=== PATIENT | female | born 1970 | race Caucasian/White ===

== ENCOUNTER 2020-02-28 06:34 | Day surgery (SDC) | payer MEDICAID, SELFPAY ==
[2020-02-26 14:47] VITALS: BMI 44.9
[2020-02-28 06:54] VITALS: BP 160/100; PULSE 83; RESP 18; TEMP 36.2; O2SAT 96
[2020-02-28] MEDS: sodium chloride 0.9% 1,000 ML 30 ML IV (07:00)
--- NOTE | 2020-02-28 07:13 | P.HP_ITS ---
Same Day Surgery H&P Indication for Procedure/HPI DATE OF PROCEDURE: February 28, 2020 CHIEF COMPLAINT/INDICATIONFOR SURGICAL PROCEDURE: I am here to discuss screening colonoscopy PREOP DIAGNOSIS: Screening Colonoscopy PLANNED PROCEDRUE: Operation Date: 02/28/20 07:30 Proposed Procedures p Colonoscopy 71120 Z12.11(Not Applicable) - Vin Naik MD This is a pleasant 49 years old female patient was referred to my practice for evaluation for screening colonoscopy, as she never had one before, she is updated on Pap smear mammograms and she was advised by her PCP to have a screening colonoscopy. Patient denies any bleeding per rectum, colon cancer history or weight loss ROS All systems have been reviewed negative except as per the above or per problem list Medications/Allergies* Home Medications Medication Instructions Recorded Confirmed Type hydrocodone 5 mg-acetaminophen 325 1 tab PO BID PRN 09/30/19 02/28/20 History mg tablet lisinopril 20 mg tablet 20 mg PO DAILY 09/30/19 02/28/20 History ospemifene 60 mg tablet 60 mg PO DAILY 09/30/19 02/28/20 History Allergies/Adverse Reactions Allergy/AdvReac Type Severity Reaction Status Date / Time latex Allergy ITCHING, Verified 02/28/20 07:17 RASH Current Medications: Generic Name Dose Route Start Last Admin Trade Name Freq PRN Reason Stop Dose Admin Sodium Chloride 1,000 mls @ 30 mls/hr 02/28/20 06:45 02/28/20 07:00 Sodium Chloride 0.9% IV 30 mls/hr .Q24H SHUKRI Administration Pertinent History/Comorbid Conditions* Medical History (Updated 09/30/19 @ 04:09 by Vonda Cronin RN) Anxiety and depression Back pain due to injury Dyspareunia, female Left ovarian cyst Overactive bladder Pelvic pain in female Urinary, incontinence, stress female Vaginal bleeding, abnormal Vaginal dryness Pbgff-Ugkshpazy-Birha syndrome Surgical History (Updated 09/30/19 @ 04:09 by Vonda Cronin RN) H/O breast biopsy H/O carpal tunnel repair History of bladder surgery History of hysterectomy History of tubal ligation Hx of left knee surgery Family History (Updated 09/30/19 @ 04:10 by Vonda Cronin RN) Diabetes Mother Grandmother MATERNAL Patient denies medical problems Family/Other Patient denies any past medical history of diabetes, lung, liver, kidney, thyroid, bleeding, or clotting problems. Cancer Mother RENAL CELL CARCINOMA Hypertension Mother Social History Smoking and tobacco status: former smoker Alcohol intake: current Alcohol intake frequency: holidays/special occasions only Pertinent Exam Findings alert, oriented x 3, clear to auscultation bilaterally, regular rate & rhythm and procedure specific exam findings (Abdominal examination nontender nondistended soft no peritonitis/obese) Recommendations Surgery/Procedure today (Screening colonoscopy/informed consent per chart indications risks benefits and alternatives were all discussed with the patient and she did agree to proceed accordingly.) 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
--- NOTE | 2020-02-28 07:19 | P.ANESASSM_ITS ---
Pre-Anesthetic Assessment Pre-Anesthetic Assessment: Height/Weight: Height 1.52 m Weight 104.326 kg Temp Pulse Resp BP Pulse Ox 97.1 F L 83 18 160/100 96 02/28/20 06:54 02/28/20 06:54 02/28/20 06:54 02/28/20 06:54 02/28/20 06:54 Preop Diagnosis: Screening Colonoscopy Proposed Procedure: Operation Date: 02/28/20 07:30 Proposed Procedures p Colonoscopy 00471 Z12.11(Not Applicable) - Vin Naik MD Last intake: Intake Last Liquid Date 02/27/20 Last Liquid Time 20:00 Last Solid Date 02/27/20 Last Solid Time 10:00 Social: Social History: No alcohol and No tobacco Packs per day: quit 11 yr ago Exam: Pre-Anes Outpt Exam: alert, oriented x 3, clear to auscultation bilaterally and regular rate & rhythm Airway: Submandibular: WNL Cervical ROM: WNL MP: 3 Dentition: Full History/ROS: No significant history except as noted and No significant complaints Pulmonary: Pulmonary: Sleep apnea and None reported CV/HEM: CV/HEM: Arrythmia and HTN Comments: WPW : : None reported Hepatic: Hepatic: None reported GI: GI: None reported Metabolic: Metabolic: None reported Musc/skel: Musc/skel: Lower Back Pain and OA/DJD Neuropsych: Neuropsych: None reported Anesthetic Plan: ASA status: 2 Anesthesia: MAC Meds/Allergies Current Medications: Current Medications Generic Name Dose Route Start Last Admin Trade Name Freq PRN Reason Stop Dose Admin Sodium Chloride 1,000 mls @ 30 ml s/hr 02/28/20 06:45 02/28/20 07:00 Sodium Chloride 0.9% IV 30 mls/hr .Q24H SHUKRI Administration PFSH Anesthesia PFSH: Medical History Anxiety and depression Back pain due to injury Dyspareunia, female Left ovarian cyst Overactive bladder Pelvic pain in female Urinary, incontinence, stress female Vaginal bleeding, abnormal Vaginal dryness Ytymj-Yrnziikgl-Obxhe syndrome Surgical History H/O breast biopsy H/O carpal tunnel repair History of bladder surgery History of hysterectomy History of tubal ligation Hx of left knee surgery Family History Mother Diabetes Hypertension Cancer RENAL CELL CARCINOMA Grandmother Diabetes MATERNAL Family/Other Patient denies medical problems Patient denies any past medical history of diabetes, lung, liver, kidney, thyroid, bleeding, or clotting problems. Social History Smoking and tobacco status: former smoker Alcohol intake: current Alcohol intake frequency: holidays/special occasions only Data Anesthesia Cardiac Studies: 2 No Data to Display
[2020-02-28 07:35] VITALS: BP 126/78; PULSE 81; RESP 16; TEMP 36.3; O2SAT 95
[2020-02-28 07:46] VITALS: BP 126/84; PULSE 67; RESP 18; O2SAT 96
--- NOTE | 2020-02-28 07:51 | ANE.PACU2 ---
Inpatient post-anesthesia follow up: Airway intact: Yes Vital signs: Temperature 97.3 F Pulse Rate 67 Respiratory Rate 18 Blood Pressure 126/84 Pulse Oximetry 96 Oxygen Delivery Me thod Room Air Oxygen Flow Rate 3 Fraction of Inspir ed Oxygen Hydration adequate: Yes Nausea and vomiting: No Mental status: Baseline
== END 2020-02-28 07:55 | disposition home or self-care (01) ==
PROVIDERS: PCP Physician Assistant Medical; Visit Provider Surgery
PROC: 0DJD8ZZ Inspection of Lower Intestinal Tract, Via Natural or Artificial Opening Endoscopic (ICD-10-PCS; CPT 45378; principal; 2020-02-28 07:30)
DX: Z12.11 Encounter for screening for malignant neoplasm of colon (principal); K57.30 Diverticulosis of large intestine without perforation or abscess without bleeding; Z87.891 Personal history of nicotine dependence
CPT/HCPCS: 12345; 45378; J2704; J7030

== ENCOUNTER → 2022-09-14 15:46 | Outpatient (BNVA) | payer MEDICARE, BC, MEDICAID, SELFPAY | PROVIDERS: PCP Physician Assistant Medical; Referring Provider Registered Nurse; Visit Provider Specialist | DX: G56.02 Carpal tunnel syndrome, left upper limb (principal) | CPT/HCPCS: 95908; 95909 ==

== ENCOUNTER → 2023-05-18 10:40 | Outpatient (BNVA) | payer MEDICARE, MEDICAID, SELFPAY | PROVIDERS: PCP Registered Nurse; Visit Provider Internal Medicine Cardiovascular Disease | DX: N32.81 Overactive bladder (principal); R07.9 Chest pain, unspecified; I10 Essential (primary) hypertension; E78.2 Mixed hyperlipidemia; E66.01 Morbid (severe) obesity due to excess calories; Z68.41 Body mass index [BMI] 40.0-44.9, adult; R94.31 Abnormal electrocardiogram [ECG] [EKG]; R00.2 Palpitations | CPT/HCPCS: 93005; 93246; 99204 ==

== ENCOUNTER 2023-05-21 11:58 | Outpatient (CLI) | payer MEDICARE, MEDICAID, SELFPAY ==
--- NOTE | 2023-05-21 | ECG_ITS ---
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 Interpretive Statements NAME OF STUDY: TREADMILL STRESS TEST INDICATION: cp, abnormal ekg Baseline blood pressure of [158/102] mm Hg, heart rate [of 102] beats per minute and oxygen saturation [of 96% ]. EKG showed sinus tachycardia, left axis deviation. Nonspecific T wave changes. The patient exercised for [ 3 minutes] on a [standard Antonio protocol]. Patient attained a maximum heart rate of [153] beats per minute( [91] % of the maximum predicted heart rate) with a blood pressure at the peak exercise of [155/79]mm Hg. The EKG at the peak exercise revealed [Sinus tachycardia with no significant ST-T wave changes]. Patient did not have any chest pain or any significant arrhythmis with the exercise. Study was terminated due to maximal effort. During the recovery phase, there were no new changes. Blood pressure at the end of the recovery phase was [151/81] mm Hg with a heart rate of [111 beats] per minute. CONCLUSION: 1. Normal EKG response to treadmill exercise 2. No exercise-induced chest pain or cardiac arrhythmia. 3. Decreased exercise tolerance, attained a maximum of [4.6] METs. 4. Baseline hypertension with normal response to exercise. Electronically Signed On 05-31-2023 10:45:16 CDT by Bethany Evans M.D. [email or web address].[employer]/store/[id number]
[2023-05-21 12:15] VITALS: BMI 48.8
[2023-05-21 12:40] VITALS: BP 151/81; PULSE 111
== END 2023-05-21 11:59 | disposition home or self-care (01) ==
LOC: CDL 11:59
PROVIDERS: PCP Registered Nurse; Visit Provider Internal Medicine Cardiovascular Disease
DX: R07.9 Chest pain, unspecified (principal); R94.31 Abnormal electrocardiogram [ECG] [EKG]
CPT/HCPCS: 93017

== ENCOUNTER 2023-05-31 08:58 | Outpatient (CLI) | payer MEDICARE, MEDICAID, SELFPAY ==
--- NOTE | 2023-05-31 09:30 | USCV_ITS ---
Sandie Rodriguez Age: 52 Gender: F : 1970 Exam Date: 05/31/2023 09:13 Ordering Phys: Bethany Evans MD ([email or web address]) Technologist: Mis Vázquez Exam Location: [facility] [place] Indication: cp, sob, fatigue BP: 150 / 84 HR: 67 Rhythm: Sinus Technical Quality: Good MEASUREMENTS (Male / Female) Normal Values 2D ECHO LV Diastolic Diameter PLAX 4.7 cm 4.2 - 5.9 / 3.9 - 5.3 cm LV Systolic Diameter PLAX 1.8 cm IVS Diastolic Thickness 1.0 cm 0.6 - 1.0 / 0.6 - 0.9 cm IVS Systolic Thickness 2.0 cm LVPW Diastolic Thickness 1.4 cm 0.6 - 1.0 / 0.6 - 0.9 cm LVPW Systolic Thickness 1.9 cm LVOT Diameter 2.0 cm LV Ejection Fraction 2D Teich 91.1 % LV Ejection Fraction MOD 2C 66.8 % LV Ejection Fraction 2C AL 67.6 % LA Diameter 2.7 cm LA Width 2.5 cm LA Height 4.1 cm RA Width 2.5 cm RA Height 4.1 cm Aorta at Sinotubular Diameter 2.9 cm IVC Diameter 1.4 cm M-MODE Aortic Annulus Diameter 2.7 cm LA Ao Ratio MM 1.1 MV E Point Septal Separation 0.6 cm DOPPLER AV Peak Velocity 125.0 cm/s LVOT Peak Velocity 109.0 cm/s AV Area Cont Eq vti 2.8 cm squared AV Area Cont Eq pk 2.8 cm squared MV Peak Velocity 88.0 cm/s MV Area PHT 3.2 cm squared Mitral E to A Ratio 0.9 MV E' Velocity 48.5 cm/s Mitral E to MV E' Ratio 8.2 Mitral E to LV E' Lateral Ratio 6.3 Mitral E to LV E' Septal Ratio 11.7 TR Peak Velocity 205.0 cm/s TR Peak Gradient 16.8 mmHg Right Atrial Pressure 5.0 mmHg Pulmonary Artery Systolic Pressu 21.8 mmHg PV Peak Velocity 94.0 cm/s RV Acceleration Time 0.1 s RV Ejection Time 0.3 s RV AcT/ET 0.4 FINDINGS Left Ventricle Normal left ventricular size, systolic function and wall thickness, with no regional wall motion abnormalities. Left ventricular ejection fraction is estimated at 70 %. Normal diastolic function. Right Ventricle Normal right ventricular size and systolic function, RVSP 31 mmHg. Right Atrium Normal right atrial size. Left Atrium Normal left atrial size. Mitral Valve Structurally normal mitral valve. No mitral valve stenosis. Trace mitral valve regurgitation. Aortic Valve Structurally normal trileaflet aortic valve. No aortic valve stenosis. No aortic valve regurgitation. Tricuspid Valve Structurally normal tricuspid valve. No tricuspid valve stenosis. Mild tricuspid valve regurgitation. Pulmonic Valve Pulmonic valve not well visualized. No pulmonary valve stenosis. No pulmonary valve regurgitation. Pericardium No pericardial effusion. Aorta Normal size aortic root and proximal ascending aorta. IVC Normal IVC dimension with >50% respiratory change of the inferior vena cava. CONCLUSIONS 1. Normal left ventricular size, systolic function and wall thickness, with no regional wall motion abnormalities. Left ventricular ejection fraction is estimated at 70 %. Normal diastolic function. 2. Normal right ventricular size and systolic function, RVSP 31 mmHg. 3. Mild tricuspid valve regurgitation. 4. No prior similar studies to compare. Bethany Evans MD (Electronically Signed) Final Date: 31 May 2023 12:34 S
== END 2023-05-31 08:59 | disposition home or self-care (01) ==
LOC: RAD 09:00
PROVIDERS: PCP Registered Nurse; Visit Provider Internal Medicine Cardiovascular Disease
DX: R07.9 Chest pain, unspecified (principal); R06.09 Other forms of dyspnea; R53.83 Other fatigue; R06.02 Shortness of breath; I07.1 Rheumatic tricuspid insufficiency
CPT/HCPCS: 93306

== ENCOUNTER → 2023-09-07 09:37 | Outpatient (BNVA) | payer MEDICARE, MEDICAID, SELFPAY | PROVIDERS: PCP Registered Nurse; Visit Provider Nurse Practitioner Family | DX: L82.1 Other seborrheic keratosis (principal); L82.0 Inflamed seborrheic keratosis; D22.5 Melanocytic nevi of trunk; L57.8 Other skin changes due to chronic exposure to nonionizing radiation; Z80.8 Family history of malignant neoplasm of other organs or systems; L91.8 Other hypertrophic disorders of the skin | CPT/HCPCS: 17110; 99203 ==

== ENCOUNTER → 2023-09-28 08:44 | Outpatient (BNVA) | payer MEDICARE, MEDICAID, SELFPAY | PROVIDERS: PCP Registered Nurse; Visit Provider Nurse Practitioner Family | DX: I10 Essential (primary) hypertension (principal); I45.6 Pre-excitation syndrome; Z87.891 Personal history of nicotine dependence | CPT/HCPCS: 99214 ==

== ENCOUNTER 2023-12-01 13:59 | Emergency (ER) | payer MEDICARE, SELFPAY ==
[2023-12-01 14:07] VITALS: BP 181/82; PULSE 79; RESP 18; TEMP 36.4; O2SAT 98; BMI 48.2
[2023-12-01 15:10] VITALS: PULSE 83; RESP 16; O2SAT 96
--- NOTE | 2023-12-01 15:49 | ECG_ITS ---
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 Measurements Intervals [place] Rate: 70 P: 95 WA: 109 QRS: -20 QRSD: 138 T: 135 QT: 421 QTc: 455 Interpretive Statements SINUS RHYTHM WITH SHORT WA INTERVAL VENTRICULAR PREEXCITATION Compared to ECG 05/18/2023 10:46:01 No significant changes Electronically Signed On 12-01-2023 22:12:44 CDT by Ricco Aldana M.D. [email or web address].[email or web address]/store/[id number]
--- NOTE | 2023-12-01 15:49 | XR_ITS ---
WS: [id number] Examination: XR chest 1V portable [id number] Reason for Exam: HTN,SOB Date: December 01, 2023 Comparison: None. Findings: The heart is not enlarged. The mediastinum is not widened There is no pulmonary edema. There is no large effusion. No dense consolidation is identified. Impression: No acute lung process is seen.
--- NOTE | 2023-12-01 16:00 | PC.PHAR ---
pt states she takes care of her own medications-pt states she dced her spironolactone-hctz 25-25 1 tab po daily -oxybutynin er 5mg tid and wellbutrin sr 200mg bid pt states not taken for over a month-
[2023-12-01] MEDS: diphenhydrAMINE 50 mg/mL SDV 1mL IM (16:07)
[2023-12-01] MEDS: sodium chloride 0.9% 1,000 ML 999 ML IV (16:07)
[2023-12-01 16:16] LABS: Basophils % 0.6 %; Eosinophils # 0.2 10^3/uL (0.0-0.8); Eosinophils % 2.9 %; Hematocrit 32.9 % (36-47); Lymphocytes # 1.4 10^3/uL (0.8-4.8); Lymphocytes % 20.9 %; Mean Corpuscular HGB Conc 33.4 g/dL (30-55); Mean Corpuscular Hemoglobin 31.1 pg (27-33); Mean Corpuscular Volume 92.9 fl (85-98); Mean Platelet Volume 10.6 fL (7.4-10.4); Monocytes # 0.4 10^3/uL (0.2-0.9); Monocytes % 5.7 %; Neutrophils % 69.6 %; Nucleated Red Blood Cells % 0 %; Platelet Count 167 10^3/cmm (157-399); Red Blood Count 3.54 10^6/uL (3.85-5.65); Red Cell Distribution Width 12.3 % (12.1-15.1); White Blood Count 6.61 10^3/uL (3.29-11.43)
--- NOTE | 2023-12-01 16:27 | W.ED.GENADLT ---
Documented by User: ABDOUL Kowalski 12/01/23 19:43 HPI - General Adult General: Chief complaint: General Medical Stated complaint: facial swelling, headache Time Seen by Provider: 12/01/23 14:20 Source: patient Mode of arrival: ambulatory Limitations: no limitations History of Present Illness: Patient is a 53-year-old female presents the emergency department complaining of high blood pressure onset today. Patient notes she has been dealing with high blood pressure for a while now, and takes readings twice a day. She notes that prior to arrival, she recorded a blood pressure of 180s systolic. She is on lisinopril and metoprolol, and as of 1 week ago was started on amlodipine. She does note symptoms of some weakness and headaches, but otherwise denies any chest pain or breathing difficulties. She is also reporting some facial swelling, eye watering, and congestion. She does note a history of kidney disease. 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 She further denies any peripheral edema, palpitations, syncope, or any other symptoms. Associated symptoms: Reports headache(s); Deny chest pain, dyspnea, nausea, rash, palpitations or vomiting Review of Systems General: Reports: 10 or more systems reviewed and unremarkable except in HPI and below Const: Denies: fever(s), chills or fatigue Eyes: Reports: eye discharge (Watery); Denies: change in vision ENMT: Reports: nasal congestion and other (Facial swelling); Denies: throat pain, ear or mastoid pain or nasal discharge Card: Reports: other (Hypertension); Denies: chest pain, palpitations, swelling of feet/ankles or lightheadedness Resp: Denies: dyspnea, productive cough or wheezing GI: Denies: abdominal pain, nausea, vomiting, diarrhea or constipation : Denies: flank pain, difficulty voiding, dysuria or urinary frequency Musc: Denies: neck pain, back pain or joint pain Skin/Breast: Denies: rash Neuro: Reports: headache(s) and weakness in extremities; Denies: numbness in extremities [facility] PFSH: Medical History Mixed hyperlipidemia Morbid obesity with BMI of 40.0-44.9, adult Anxiety and depression Vjibz-Jhplphlrd-Pwxky syndrome Overactive bladder Vaginal bleeding, abnormal Back pain due to injury Left ovarian cyst Dyspareunia, female Urinary, incontinence, stress female Pelvic pain in female Vaginal dryness Surgical History H/O esophagogastroduodenoscopy with dilation H/O colonoscopy H/O carpal tunnel repair History of bladder surgery Hx of left knee surgery H/O breast biopsy History of tubal ligation History of hysterectomy Family History Mother Diabetes Hypertension Cancer RENAL CELL CARCINOMA Grandmother Diabetes MATERNAL Family/Other Patient denies medical problems Patient denies any past medical history of diabetes, lung, liver, kidney, thyroid, bleeding, or clotting problems. Denies family history of Anesthesia complication Bleeding disorder Social History Smoking and tobacco/nicotine status: former use of tobacco/nicotine Alcohol intake: current Alcohol intake frequency: holidays/special occasions only Substance/Drug Use: never Household members: spouse Marital status: Current occupational status: disabled Physical Exam Const: COMMON NORMALS: no acute distress, patient oriented x3 and no limitations GENERAL APPEARANCE: cooperative, comfortable and well developed ORIENTATION/CONSCIOUSNESS: Yes awake, Yes oriented to person, Yes oriented to place and Yes oriented to time HENMT: COMMON NORMALS: normocephalic, atraumatic, hearing grossly normal bilaterally and Normal external nose present HEAD & SCALP: normocephalic and atraumatic FACE & SINUS: edema bilaterally periorbital NOSE: Normal external nose present MOUTH: Normal oral and palatal mucosa present Eye: COMMON NORMALS: Equal, round and reactive pupils present, EOMs intact bilaterally and conjunctivae normal CONJUNCTIVA: Yes conjunctivae normal PUPIL: Yes Equal, round and reactive pupils present Neck/C-Spine: COMMON NORMALS: full ROM, supple and no JVD Resp: COMMON NORMALS: normal respiratory effort, No retractions, No use of accessory muscles and clear to auscultation bilaterally AUSCULTATION: clear to auscultation bilaterally Cardio: COMMON NORMALS: no JVD, regular rate, regular rhythm, No clicks present (Cardio), No murmurs present (Cardio) and No rub (Cardio) RATE: regular rate RHYTHM: regular rhythm GI: COMMON NORMALS: Normal to inspection, nondistended, normoactive bowel sounds present, Soft to palpation and non-tender PALPATION: Yes Soft to palpation RECTAL EXAM: deferred Extremity: COMMON NORMALS: normal to inspection, full ROM and capillary refill normal Neuro: COMMON NORMALS: patient oriented x3, moves all extremities, no focal motor deficits and no sensory deficits noted SENSORIUM/ORIENTATION: Yes oriented to person, Yes oriented to place and Yes oriented to time Psych: COMMON NORMALS: mental status grossly normal and Normal thought process present THOUGHT PROCESS: Normal thought process present Skin: COMMON NORMALS: no rashes or lesions noted GENERAL SKIN EXAM: no rashes or lesions noted Course Vital Signs: Vital signs: Vital Signs Temperature 97.5 F L 12/01/23 14:07 Pulse Rate 78 12/01/23 18:09 Respiratory Rate 16 12/01/23 18:09 Blood Pressure 179/84 12/01/23 18:09 Pulse Oximetry 97 12/01/23 18:09 Oxygen Delivery Me thod Room Air 12/01/23 16:46 MDM - General Adult Medical Decision Making This patient was seen and evaluated in the emergency department due to high blood pressure readings. Patient reports lengthy history, starting with new onset hypertension and kidney disease starting in August. She has been started and tried on many antihypertensives since, with retained elevated blood pressure readings. She states that yesterday she started getting readings of 180s systolic, and got worried when she started having some associated weakness and headaches. She does note some chronically worsening visual changes as well as some facial swelling. Recently, she was started on amlodipine, already on metoprolol and lisinopril. She notes having a follow-up scheduled with nephrology in a week and a half. Her vitals on arrival were ultimately unremarkable, aside from the previously reported elevated blood pressure which has also been in the 180s systolic here. Basic laboratory workup showed some mild anemia associated with an elevated BUN and creatinine, and further evidence of a kidney injury. GFR was noted to be 16. Her urine also had some protein, but the rest of her labs ultimately normal. EKG showed Matev-Raminhkbg-Mwfni with normal sinus rhythm, which she states is chronic and she sees a medical sales specialist for. Chest x-ray unremarkable. I spoke to Dr. Camarena, hospitalist, to discuss patient's case and current findings. He recommended correlating kidney labs with records from outside facility, which after doing so appeared that her BUN and creatinine were stable compared to most recent labs. He also recommended starting hydralazine, discontinuing lisinopril, and maintaining her current plan with following up with nephrology. I discussed this with the patient in thorough detail, and reasons to return were given such as any acute chest pains, breathing difficulties, syncopal episodes, or any other concerning symptoms she may have. Patient will be given a dose of hydralazine prior to discharge, and she agrees with plan. Medical Records I reviewed the patient's medical records. Lab Data I reviewed the patient's lab results. 12/01/23 16:10 12/01/23 16:10 Laboratory Results WBC 6.61 10^3/uL (3.29-11.43) 12/01/23 16:10 RBC 3.54 10^6/uL (3.85-5.65) L 12/01/23 16:10 Hgb 11.00 g/dL (11.27-16.99) L 12/01/23 16:10 Hct 32.9 % (36-47) L 12/01/23 16:10 MCV 92.9 fl (85-98) 12/01/23 16:10 MCH 31.1 pg (27-33) 12/01/23 16:10 MCHC 33.4 g/dL (30-55) 12/01/23 16:10 RDW 12.3 % (12.1-15.1) 12/01/23 16:10 Plt Count 167 10^3/cmm (157-399) 12/01/23 16:10 MPV 10.6 fL (7.4-10.4) H 12/01/23 16:10 Neut % (Auto) 69.6 % 12/01/23 16:10 Lymph % (Auto) 20.9 % 12/01/23 16:10 [place] % (Auto) 5.7 % 12/01/23 16:10 Eos % (Auto) 2.9 % 12/01/23 16:10 Baso % (Auto) 0.6 % 12/01/23 16:10 Neut # (Auto) 4.60 10^3/uL (1.8-7.7) 12/01/23 16:10 Lymph # (Auto) 1.4 10^3/uL (0.8-4.8) 12/01/23 16:10 [place] # (Auto) 0.4 10^3/uL (0.2-0.9) 12/01/23 16:10 Eos # (Auto) 0.2 10^3/uL (0.0-0.8) 12/01/23 16:10 Baso # (Auto) 0.0 10^3/uL (0.0-0.1) 12/01/23 16:10 Nucleated RBC % (auto) 0 % 12/01/23 16:10 Nucleated RBCs # 0.0 /100WBC 12/01/23 16:10 Sodium 141 mmol/L (136-145) 12/01/23 16:10 Potassium 4.0 mmol/L (3.5-5.1) 12/01/23 16:10 Chloride 105 mmol/L (98-107) 12/01/23 16:10 Carbon Dioxide 27 mmol/L (22-29) 12/01/23 16:10 Anion Gap 13.0 (5-19) 12/01/23 16:10 BUN 31 mg/dL (6-20) H 12/01/23 16:10 Creatinine 2.9 mg/dL (0.5-0.9) H 12/01/23 16:10 GFR Calculation 16.9 mL/min (90-130) L 12/01/23 16:10 Glucose 104 mg/dL (65-115) 12/01/23 16:10 Calculated Osmolality 299 mOsm/kg (285-295) H 12/01/23 16:10 Calcium 9.1 mg/dL (8.5-10.5) 12/01/23 16:10 Total Bilirubin 0.2 mg/dL (0.15-1.2) 12/01/23 16:10 AST 40 U/L (0-32) H 12/01/23 16:10 ALT 33 U/L (0-33) 12/01/23 16:10 Alkaline Phosphatase 57 U/L (35-105) 12/01/23 16:10 NT-Pro-B Natriuret Pep 644 pg/mL (0-125) H 12/01/23 16:10 Total Protein 6.2 g/dL (6.6-8.7) L 12/01/23 16:10 Albumin 3.5 g/dL (3.5-5.2) 12/01/23 16:10 Globulin 2.7 g/dL (1.3-4.6) 12/01/23 16:10 Urine Color Yellow (Yellow) 12/01/23 16:33 Urine Appearance Sl hazy (CLEAR) A 12/01/23 16:33 Urine pH 5 (5-7) 12/01/23 16:33 Ur Specific [place] 1.020 (1.005-1.030) 12/01/23 16:33 Urine Protein 3+ (Negative) H 12/01/23 16:33 Urine Glucose (UA) Norm (Normal) 12/01/23 16:33 Urine Ketones Negative (Negative) 12/01/23 16:33 Urine Blood Neg (Negative) 12/01/23 16:33 Urine Nitrate Negative (Negative) 12/01/23 16:33 Urine Bilirubin Neg (Negative) 12/01/23 16:33 Urine Urobilinogen Norm mg/dL (Negative) 12/01/23 16:33 Ur Leukocyte Esterase Negative (Negative) 12/01/23 16:33 Urine RBC 0-4 /hpf (0-2) H 12/01/23 16:33 Urine WBC 25-40 /hpf (0-5) H 12/01/23 16:33 Ur Squamous Epith Cells 5-10 /hpf (0-5) H 12/01/23 16:33 Ur Transition Epith Cell 0-4 /hpf 12/01/23 16:33 Amorphous Sediment Not Reportable 12/01/23 16:33 Urine Bacteria Trace /hpf (NONE) 12/01/23 16:33 Fine Granular Casts 5-10 /lpf H 12/01/23 16:33 Urine Mucus None /hpf 12/01/23 16:33 All radiology interpretation(s) finalized by discharge EKG Data EKG 1: I personally reviewed and interpreted this EKG as follows: EKG interpretation date: 12/01/23 EKG interpretation time: 16:00 Prior EKG tracings: not available for review Interpretation: Normal sinus rhythm. Rate 70. Shortened VT interval. Lcfav-Ivtsacqin-Uexpu abnormality. No acute ST segment changes. Discharge Plan Discharge Patient Disposition: Home Clinical Impression: Chronic kidney disease (CKD) Qualifiers: Chronic kidney disease stage: unspecified stage Qualified Code(s): N18.9 - Chronic kidney disease, unspecified Hypertension Qualifiers: Hypertension type: unspecified Qualified Code(s): I10 - Essential (primary) hypertension Condition: Stable Prescriptions: New hydralazine 50 mg tablet 75 mg PO TID 10 Days Qty: 45 0RF No Action atorvastatin [Lipitor] 10 mg tablet 10 mg PO QAM metoprolol succinate 25 mg tablet extended release 24 hr 25 mg PO QAM metronidazole 500 mg tablet 500 mg PO BID Rx Instructions: for 7 days (rx filled 11/24/23) amlodipine 5 mg tablet 5 mg PO QAM ondansetron 8 mg tablet,disintegrating 8 mg PO Q8H PRN (Reason: Nausea And Vomiting) Vitamin D2 1,250 mcg (50,000 unit) Capsule 50,000 unit PO .ON WED AND WED albuterol sulfate 90 mcg/actuation HFA aerosol inhaler 2 puff INHALATION Q6H PRN (Reason: Shortness Of Breath) lisinopril 40 mg tablet 40 mg PO QAM Biofreeze 0.2-3.5 % Gel 1 applic TOPICAL DAILY PRN (Reason: Pain) Rx Instructions: rub in gently and completely Discharge Orders: Discharge ED (Routine); Ordered 12/01/23 Ordered By: Sal Dejesus Referrals: Yuly Osorio [Primary Care Provider] - Discharge Diet: Usual diet Discharge Activity: Increase activity as tolerated Patient Instructions: Chronic Kidney Disease (ED) Activity Restrictions/Additional Instructions: Stop your lisinopril. Continue your amlodipine as prescribed. Continue your metoprolol as prescribed. Start hydralazine 75 mg 3 times daily until follow-up with primary care later this week. Continue follow-up with nephrology. Follow-up with cardiology as needed. With hydralazine, you may have some dizziness, but do not skip doses. Return if you develop any new or concerning symptoms. Coding Level of Care Code ED Distance Learning Coordinator for [employer] Documented by User: Simba De León DO 12/04/23 08:44 HPI - General Adult General: Chief complaint: General Medical Stated complaint: facial swelling, headache Time Seen by Provider: 12/01/23 14:20 PFSH ED PFSH: Medical History Mixed hyperlipidemia Morbid obesity with BMI of 40.0-44.9, adult Anxiety and depression Obkwq-Fkjygyzvq-Evruw syndrome Overactive bladder Vaginal bleeding, abnormal Back pain due to injury Left ovarian cyst Dyspareunia, female Urinary, incontinence, stress female Pelvic pain in female Vaginal dryness Surgical History H/O esophagogastroduodenoscopy with dilation H/O colonoscopy H/O carpal tunnel repair History of bladder surgery Hx of left knee surgery H/O breast biopsy History of tubal ligation History of hysterectomy Family History Mother Diabetes Hypertension Cancer RENAL CELL CARCINOMA Grandmother Diabetes MATERNAL Family/Other Patient denies medical problems Patient denies any past medical history of diabetes, lung, liver, kidney, thyroid, bleeding, or clotting problems. Denies family history of Anesthesia complication Bleeding disorder Social History Smoking and tobacco/nicotine status: former use of tobacco/nicotine Alcohol intake: current Alcohol intake frequency: holidays/special occasions only Substance/Drug Use: never Household members: spouse Marital status: Current occupational status: disabled Course Vital Signs: Vital signs: Vital Signs Temperature 97.5 F L 12/01/23 14:07 Pulse Rate 78 12/01/23 18:09 Respiratory Rate 16 12/01/23 18:09 Blood Pressure 179/84 12/01/23 18:09 Pulse Oximetry 97 12/01/23 18:09 Oxygen Delivery Me thod Room Air 12/01/23 16:46 MDM - General Adult Medical Decision Making This patient was seen and evaluated in the emergency department due to high blood pressure readings. Patient reports lengthy history, starting with new onset hypertension and kidney disease starting in August. She has been started and tried on many antihypertensives since, with retained elevated blood pressure readings. She states that yesterday she started getting readings of 180s systolic, and got worried when she started having some associated weakness and headaches. She does note some chronically worsening visual changes as well as some facial swelling. Recently, she was started on amlodipine, already on metoprolol and lisinopril. She notes having a follow-up scheduled with nephrology in a week and a half. Her vitals on arrival were ultimately unremarkable, aside from the previously reported elevated blood pressure which has also been in the 180s systolic here. Basic laboratory workup showed some mild anemia associated with an elevated BUN and creatinine, and further evidence of a kidney injury. GFR was noted to be 16. Her urine also had some protein, but the rest of her labs ultimately normal. EKG showed Tjcyn-Ihpoxvhij-Qhnpp with normal sinus rhythm, which she states is chronic and she sees a medical sales specialist for. Chest x-ray unremarkable. I spoke to Dr. Camarena, hospitalist, to discuss patient's case and current findings. He recommended correlating kidney labs with records from outside facility, which after doing so appeared that her BUN and creatinine were stable compared to most recent labs. He also recommended starting hydralazine, discontinuing lisinopril, and maintaining her current plan with following up with nephrology. I discussed this with the patient in thorough detail, and reasons to return were given such as any acute chest pains, breathing difficulties, syncopal episodes, or any other concerning symptoms she may have. Patient will be given a dose of hydralazine prior to discharge, and she agrees with plan. Chart reviewed Lab Data 12/01/23 16:10 12/01/23 16:10 Laboratory Results WBC 6.61 10^3/uL (3.29-11.43) 12/01/23 16:10 RBC 3.54 10^6/uL (3.85-5.65) L 12/01/23 16:10 Hgb 11.00 g/dL (11.27-16.99) L 12/01/23 16:10 Hct 32.9 % (36-47) L 12/01/23 16:10 MCV 92.9 fl (85-98) 12/01/23 16:10 MCH 31.1 pg (27-33) 12/01/23 16:10 MCHC 33.4 g/dL (30-55) 12/01/23 16:10 RDW 12.3 % (12.1-15.1) 12/01/23 16:10 Plt Count 167 10^3/cmm (157-399) 12/01/23 16:10 MPV 10.6 fL (7.4-10.4) H 12/01/23 16:10 Neut % (Auto) 69.6 % 12/01/23 16:10 Lymph % (Auto) 20.9 % 12/01/23 16:10 [place] % (Auto) 5.7 % 12/01/23 16:10 Eos % (Auto) 2.9 % 12/01/23 16:10 Baso % (Auto) 0.6 % 12/01/23 16:10 Neut # (Auto) 4.60 10^3/uL (1.8-7.7) 12/01/23 16:10 Lymph # (Auto) 1.4 10^3/uL (0.8-4.8) 12/01/23 16:10 [place] # (Auto) 0.4 10^3/uL (0.2-0.9) 12/01/23 16:10 Eos # (Auto) 0.2 10^3/uL (0.0-0.8) 12/01/23 16:10 Baso # (Auto) 0.0 10^3/uL (0.0-0.1) 12/01/23 16:10 Nucleated RBC % (auto) 0 % 12/01/23 16:10 Nucleated RBCs # 0.0 /100WBC 12/01/23 16:10 Sodium 141 mmol/L (136-145) 12/01/23 16:10 Potassium 4.0 mmol/L (3.5-5.1) 12/01/23 16:10 Chloride 105 mmol/L (98-107) 12/01/23 16:10 Carbon Dioxide 27 mmol/L (22-29) 12/01/23 16:10 Anion Gap 13.0 (5-19) 12/01/23 16:10 BUN 31 mg/dL (6-20) H 12/01/23 16:10 Creatinine 2.9 mg/dL (0.5-0.9) H 12/01/23 16:10 GFR Calculation 16.9 mL/min (90-130) L 12/01/23 16:10 Glucose 104 mg/dL (65-115) 12/01/23 16:10 Calculated Osmolality 299 mOsm/kg (285-295) H 12/01/23 16:10 Calcium 9.1 mg/dL (8.5-10.5) 12/01/23 16:10 Total Bilirubin 0.2 mg/dL (0.15-1.2) 12/01/23 16:10 AST 40 U/L (0-32) H 12/01/23 16:10 ALT 33 U/L (0-33) 12/01/23 16:10 Alkaline Phosphatase 57 U/L (35-105) 12/01/23 16:10 NT-Pro-B Natriuret Pep 644 pg/mL (0-125) H 12/01/23 16:10 Total Protein 6.2 g/dL (6.6-8.7) L 12/01/23 16:10 Albumin 3.5 g/dL (3.5-5.2) 12/01/23 16:10 Globulin 2.7 g/dL (1.3-4.6) 12/01/23 16:10 Urine Color Yellow (Yellow) 12/01/23 16:33 Urine Appearance Sl hazy (CLEAR) A 12/01/23 16:33 Urine pH 5 (5-7) 12/01/23 16:33 Ur Specific [place] 1.020 (1.005-1.030) 12/01/23 16:33 Urine Protein 3+ (Negative) H 12/01/23 16:33 Urine Glucose (UA) Norm (Normal) 12/01/23 16:33 Urine Ketones Negative (Negative) 12/01/23 16:33 Urine Blood Neg (Negative) 12/01/23 16:33 Urine Nitrate Negative (Negative) 12/01/23 16:33 Urine Bilirubin Neg (Negative) 12/01/23 16:33 Urine Urobilinogen Norm mg/dL (Negative) 12/01/23 16:33 Ur Leukocyte Esterase Negative (Negative) 12/01/23 16:33 Urine RBC 0-4 /hpf (0-2) H 12/01/23 16:33 Urine WBC 25-40 /hpf (0-5) H 12/01/23 16:33 Ur Squamous Epith Cells 5-10 /hpf (0-5) H 12/01/23 16:33 Ur Transition Epith Cell 0-4 /hpf 12/01/23 16:33 Amorphous Sediment Not Reportable 12/01/23 16:33 Urine Bacteria Trace /hpf (NONE) 12/01/23 16:33 Fine Granular Casts 5-10 /lpf H 12/01/23 16:33 Urine Mucus None /hpf 12/01/23 16:33 Discharge Plan Discharge Patient Disposition: Home Clinical Impression: Chronic kidney disease (CKD) Qualifiers: Chronic kidney disease stage: unspecified stage Qualified Code(s): N18.9 - Chronic kidney disease, unspecified Hypertension Qualifiers: Hypertension type: unspecified Qualified Code(s): I10 - Essential (primary) hypertension Condition: Stable Prescriptions: New hydralazine 50 mg tablet 75 mg PO TID 10 Days Qty: 45 0RF No Action atorvastatin [Lipitor] 10 mg tablet 10 mg PO QAM metoprolol succinate 25 mg tablet extended release 24 hr 25 mg PO QAM metronidazole 500 mg tablet 500 mg PO BID Rx Instructions: for 7 days (rx filled 11/24/23) amlodipine 5 mg tablet 5 mg PO QAM ondansetron 8 mg tablet,disintegrating 8 mg PO Q8H PRN (Reason: Nausea And Vomiting) Vitamin D2 1,250 mcg (50,000 unit) Capsule 50,000 unit PO .ON WED AND WED albuterol sulfate 90 mcg/actuation HFA aerosol inhaler 2 puff INHALATION Q6H PRN (Reason: Shortness Of Breath) lisinopril 40 mg tablet 40 mg PO QAM Biofreeze 0.2-3.5 % Gel 1 applic TOPICAL DAILY PRN (Reason: Pain) Rx Instructions: rub in gently and completely Discharge Orders: Discharge ED (Routine); Ordered 12/01/23 Ordered By: Sal Dejesus Referrals: Yuly Osorio [Primary Care Provider] - Discharge Diet: Usual diet Discharge Activity: Increase activity as tolerated Patient Instructions: Chronic Kidney Disease (ED) Activity Restrictions/Additional Instructions: Stop your lisinopril. Continue your amlodipine as prescribed. Continue your metoprolol as prescribed. Start hydralazine 75 mg 3 times daily until follow-up with primary care later this week. Continue follow-up with nephrology. Follow-up with cardiology as needed. With hydralazine, you may have some dizziness, but do not skip doses. Return if you develop any new or concerning symptoms. Coding Level of Care Code ED Distance Learning Coordinator for [employer]
[2023-12-01 16:46] VITALS: BP 182/95; PULSE 79; RESP 18; O2SAT 96
[2023-12-01 16:47] LABS: Alanine Aminotransferase 33 U/L (0-33); Albumin Level 3.5 g/dL (3.5-5.2); Alkaline Phosphatase 57 U/L (35-105); Aspartate Amino Transferase 40 U/L (0-32); Blood Urea Nitrogen 31 mg/dL (6-20); Calcium 9.1 mg/dL (8.5-10.5); Carbon Dioxide 27 mmol/L (22-29); Chloride 105 mmol/L (98-107); Creatinine Clr Calc Pharmacy 25.2471; Globulin 2.7 g/dL (1.3-4.6); Glomerular Filtration Rate 16.9 mL/min (90-130); Glucose 104 mg/dL (65-115); NT Pro B Type Natriuretic Pept 644 pg/mL (0-125); Osmolality Calculated 299 mOsm/kg (285-295); Sodium 141 mmol/L (136-145); Total Bilirubin 0.2 mg/dL (0.15-1.2); Total Protein 6.2 g/dL (6.6-8.7)
[2023-12-01 17:00] VITALS: BP 187/89
[2023-12-01 17:00] LABS: Add Urine Microscopic? YES; Bilirubin Urine Neg (Negative); Blood Urine Neg (Negative); Glucose Urine UA Norm (Normal); Ketones Urine Negative (Negative); Leukocyte Esterase Urine Negative (Negative); Nitrate Urine Negative (Negative); Protein Urine 3+ (Negative); Urine Appearance SL Hazy (CLEAR); Urine Color Yellow (Yellow); Urobilinogen Urine Norm (Negative); pH Urine 5 (5-7)
[2023-12-01 17:09] LABS: Bacteria Urine TRACE /hpf; RBC Urine 0-4 /hpf (0-2); Transitional Epi Cells Urine 0-4 /hpf; WBC Urine 25-40 /hpf (0-5)
[2023-12-01 17:10] LABS: Add Urine Culture? No
[2023-12-01] MEDS: hyDRALAzine 25 mg Tablet 75 MG PO (17:55)
[2023-12-01 18:09] VITALS: BP 179/84; PULSE 78; RESP 16; O2SAT 97
== END 2023-12-01 18:10 | disposition home or self-care (01) ==
PROVIDERS: Emergency Provider Physician Assistant; PCP Registered Nurse
DX: I12.9 Hypertensive chronic kidney disease with stage 1 through stage 4 chronic kidney disease, or unspecified chronic kidney disease (principal); N18.9 Chronic kidney disease, unspecified; E78.2 Mixed hyperlipidemia; Z87.891 Personal history of nicotine dependence
CPT/HCPCS: 71045; 80053; 81001; 83880; 85025; 93005; 96360; 96372; 99285; J1200; J7030

== ENCOUNTER 2023-12-01 19:19 | Emergency (ER) | payer MEDICARE, SELFPAY ==
[2023-12-01 19:22] VITALS: BP 150/102; PULSE 91; RESP 18; TEMP 36.5; O2SAT 98; BMI 48.2
[2023-12-01 19:53] VITALS: BP 115/78; PULSE 92; O2SAT 99
--- NOTE | 2023-12-01 19:56 | W.ED.GENADLT ---
HPI - General Adult General: Chief complaint: General Medical Stated complaint: dizzy Time Seen by Provider: 12/01/23 19:27 History of Present Illness: Patient was seen and treated here earlier for blood pressure issues given blood pressure medicine and hydralazine before discharge. On the patient's way home patient says her vision changed she is having visual disturbances to the point that she was staggering. Patient then called EMS because of this and they brought her back here. Patient says she does not know what is going on she is does not feel right. Patient's blood pressure was also up to the 180s higher per the earlier note but it was 115/78 upon arrival here. Review of Systems General: Reports: 10 or more systems reviewed and unremarkable except in HPI and below PFSH ED PFSH: Medical History Mixed hyperlipidemia Morbid obesity with BMI of 40.0-44.9, adult Anxiety and depression Vdsas-Ewltpfwae-Kbdth syndrome Overactive bladder Vaginal bleeding, abnormal Back pain due to injury Left ovarian cyst Dyspareunia, female Urinary, incontinence, stress female Pelvic pain in female Vaginal dryness Surgical History H/O esophagogastroduodenoscopy with dilation H/O colonoscopy H/O carpal tunnel repair History of bladder surgery Hx of left knee surgery H/O breast biopsy History of tubal ligation History of hysterectomy Family History Mother Diabetes Hypertension Cancer RENAL CELL CARCINOMA Grandmother Diabetes MATERNAL Family/Other Patient denies medical problems Patient denies any past medical history of diabetes, lung, liver, kidney, thyroid, bleeding, or clotting problems. Denies family history of Anesthesia complication Bleeding disorder Social History Smoking and tobacco/nicotine status: former use of tobacco/nicotine Alcohol intake: current Alcohol intake frequency: holidays/special occasions only Substance/Drug Use: never Household members: spouse Marital status: Current occupational status: disabled Physical Exam Const: COMMON NORMALS: no acute distress, average body habitus, patient oriented x3, no limitations, healthy appearing, alert and well nourished HENMT: COMMON NORMALS: normocephalic, atraumatic, hearing grossly normal bilaterally, external ears normal, Normal external nose present, moist oral mucous membranes and oropharynx normal HEAD & SCALP: normocephalic and atraumatic NOSE: Normal external nose present EXTERNAL EAR: Yes external ears normal Neck/C-Spine: COMMON NORMALS: no JVD Chest: COMMONS NORMALS: normal inspection of the chest and normal palpation of entire chest wall Resp: COMMON NORMALS: normal respiratory effort, No retractions, No use of accessory muscles and clear to auscultation bilaterally AUSCULTATION: clear to auscultation bilaterally Cardio: COMMON NORMALS: no JVD, regular rate, regular rhythm, S1 normal heart sound present, S2 normal heart sound present, No gallops present (Cardio), No clicks present (Cardio), No murmurs present (Cardio) and No rub (Cardio) RATE: regular rate RHYTHM: regular rhythm HEART SOUNDS: S1 normal heart sound present and S2 normal heart sound present GI: COMMON NORMALS: Normal to inspection, nondistended, normoactive bowel sounds present, Soft to palpation, non-tender and No hepatosplenomegaly present PALPATION: Yes Soft to palpation and Yes No hepatosplenomegaly present Neuro: COMMON NORMALS: patient oriented x3 SENSORIUM/ORIENTATION: Yes alert Course Vital Signs: Vital signs: Vital Signs Temperature 97.7 F 12/01/23 19:22 Pulse Rate 92 12/01/23 19:53 Respiratory Rate 18 12/01/23 19:22 Blood Pressure 144/86 12/01/23 21:55 Pulse Oximetry 99 12/01/23 19:53 Oxygen Delivery Me thod Room Air 12/01/23 19:53 MDM - General Adult Medical Decision Making Patient was given hydralazine earlier which seemed to lower her blood pressure too much too fast lowered from approximately 1 80-1 10 patient got lightheaded dizzy and just felt strange. Patient returned here by ambulance where we observed her and initially got a head CT which was normal patient's blood pressure did improve and come up and patient started feeling much better. Patient be discharged to follow-up with her PCP. Medical Records Hypotension secondary to hyper tension medicine Lab Data I reviewed the patient's lab results. Radiology Impressions Head CT 12/01/23 21:57 IMPRESSION: No acute intracranial abnormality. All radiology interpretation(s) finalized by discharge Discharge Plan Discharge Patient Disposition: Home Clinical Impression: Hypotension due to medication Condition: Stable Prescriptions: No Action atorvastatin [Lipitor] 10 mg tablet 10 mg PO QAM metoprolol succinate 25 mg tablet extended release 24 hr 25 mg PO QAM metronidazole 500 mg tablet 500 mg PO BID Rx Instructions: for 7 days (rx filled 11/24/23) amlodipine 5 mg tablet 5 mg PO QAM ondansetron 8 mg tablet,disintegrating 8 mg PO Q8H PRN (Reason: Nausea And Vomiting) Vitamin D2 1,250 mcg (50,000 unit) Capsule 50,000 unit PO .ON WED AND WED albuterol sulfate 90 mcg/actuation HFA aerosol inhaler 2 puff INHALATION Q6H PRN (Reason: Shortness Of Breath) lisinopril 40 mg tablet 40 mg PO QAM Biofreeze 0.2-3.5 % Gel 1 applic TOPICAL DAILY PRN (Reason: Pain) Rx Instructions: rub in gently and completely hydralazine 50 mg tablet 75 mg PO TID 10 Days Qty: 45 0RF Discharge Orders: Discharge ED (Routine); Ordered 12/01/23 Ordered By: Rene Rodriguez Referrals: Yuly Osorio [Primary Care Provider] - 1 week Patient Instructions: Hypotension (ED) Activity Restrictions/Additional Instructions: Thank you for choosing [facility] for your healthcare needs today. Please realize that you were seen in the emergency department and that we are providing you with an emergency medical screening exam and this may not be a complete and all exclusive of all testing and/or medical workup we may need to determine your element or severity of your illness. It is very important that you follow-up as instructed with your primary care provider or specialist for the additional evaluation and to discuss your medical treatment plan. You may return to the emergency department should you have concerns or if your condition changes or worsens in any way. Coding Level of Care Code ED Live In Caregiver for Sabine Dan
[2023-12-01 21:55] VITALS: BP 144/86
--- NOTE | 2023-12-01 21:57 | CTR_ITS ---
PROCEDURE INFORMATION: Exam: CT Head Without Contrast Exam date and time: 12/01/2023 10:06 PM Age: 53 years old Clinical indication: Dizziness; Additional info: Left leg numb tingling TECHNIQUE: Imaging protocol: Computed tomography of the head without contrast. Radiation optimization: All CT scans at this facility use at least one of these dose optimization techniques: automated exposure control; mA and/or kV adjustment per patient size (includes targeted exams where dose is matched to clinical indication); or iterative reconstruction. COMPARISON: No relevant prior studies available. RADIATION DOSE METRICS: Total DLP (mGy-cm): 1052.9 FINDINGS: Brain: Normal. No hemorrhage. Unremarkable white matter. No mass effect. Cerebral ventricles: No ventriculomegaly. Paranasal sinuses: Visualized sinuses are unremarkable. No fluid levels. Mastoid air cells: Visualized mastoid air cells are well aerated. Bones/joints: Unremarkable. No acute fracture. Soft tissues: Unremarkable. CT/CT head wo con* [id number] IMPRESSION: No acute intracranial abnormality.
[2023-12-01 23:45] VITALS: BP 147/114; PULSE 86; RESP 18; O2SAT 97
== END 2023-12-01 23:33 | disposition home or self-care (01) ==
PROVIDERS: Emergency Provider Emergency Medicine; PCP Registered Nurse
DX: I95.2 Hypotension due to drugs (principal); T46.5X5A Adverse effect of other antihypertensive drugs, initial encounter; E78.2 Mixed hyperlipidemia; Z87.891 Personal history of nicotine dependence
CPT/HCPCS: 70450; 99284

== ENCOUNTER 2024-01-13 09:46 | Outpatient (CLI) | payer MEDICARE, SELFPAY ==
--- NOTE | 2024-01-13 09:50 | CT_ITS ---
WS: [id number] LDCT LUNG CANCER SCREENING HISTORY: NICOTINE DEPENDENCE TECHNIQUE: Axial imaging performed from the apices to 1 cm below the costophrenic angles. Coronal and sagittal reformats are submitted with axial MIP series. All CT scans at [facility] use at least one of these dose optimization techniques: automated exposure control; mA and/or kV adjustment per patient size (includes targeted exams where dose is matched to clinical indication); or iterativ e reconstruction. DLP: 111.01 mGy.cm DIvol: Mean CTDIvol: 2.80 (mGy) COMPARISON: None available. Diagnostic quality: Satisfactory Lungs: Noncalcified 5 mm nodule near the short fissure of the RIGHT lung. This may be projecting towa rds the RIGHT middle lobe. No additional nodule or mass. Linear scar/atelectasis medial RIGHT lower l obe. No endobronchial lesions. Heart: Normal size heart with no pericardial effusion.. Other findings: Mild atherosclerosis thoracic aorta. Very mild enlargement of the pulmonary artery. N o adenopathy identified on this unenhanced exam. 1.5 cm LEFT adrenal adenoma. Marked increase in thor acic kyphosis with advanced spondylosis. CT/CT lung screening [id number] IMPRESSION: LUNG-RADS: 3-Probably Benign FOLLOW UP: 6 Month LDCT OTHER FINDINGS (S MODIFIER): None.
== END 2024-01-13 09:47 | disposition home or self-care (01) ==
LOC: RAD 09:46
PROVIDERS: PCP Registered Nurse; Visit Provider Registered Nurse
DX: F17.211 Nicotine dependence, cigarettes, in remission (principal); Z12.2 Encounter for screening for malignant neoplasm of respiratory organs
CPT/HCPCS: 71271

== ENCOUNTER → 2024-01-20 09:01 | Outpatient (BNVA) | payer MEDICARE, SELFPAY | PROVIDERS: PCP Registered Nurse; Visit Provider Nurse Practitioner Family | DX: I45.6 Pre-excitation syndrome (principal); I10 Essential (primary) hypertension; Z87.891 Personal history of nicotine dependence | CPT/HCPCS: 99214 ==

== ENCOUNTER → 2024-05-29 10:38 | Outpatient (BNVA) | payer MEDICARE, MEDICAID, SELFPAY | PROVIDERS: PCP Registered Nurse; Visit Provider Internal Medicine Cardiovascular Disease | DX: I49.8 Other specified cardiac arrhythmias (principal); I45.6 Pre-excitation syndrome; R07.9 Chest pain, unspecified | CPT/HCPCS: 93005 ==

== ENCOUNTER → 2024-10-16 15:19 | Outpatient (BNVA) | payer MEDICARE, MEDICAID, SELFPAY | PROVIDERS: PCP Registered Nurse; Visit Provider Nurse Practitioner Family | DX: L82.1 Other seborrheic keratosis (principal); D22.5 Melanocytic nevi of trunk; L72.0 Epidermal cyst; L91.8 Other hypertrophic disorders of the skin; L57.8 Other skin changes due to chronic exposure to nonionizing radiation; Z80.8 Family history of malignant neoplasm of other organs or systems | CPT/HCPCS: 99213 ==

== ENCOUNTER → 2024-11-22 10:26 | Outpatient (BNVA) | payer MEDICARE, MEDICAID, SELFPAY | PROVIDERS: PCP Registered Nurse; Visit Provider Internal Medicine Cardiovascular Disease | DX: I45.6 Pre-excitation syndrome (principal); I10 Essential (primary) hypertension; E78.2 Mixed hyperlipidemia; R00.2 Palpitations; N18.6 End stage renal disease; Z99.2 Dependence on renal dialysis | CPT/HCPCS: 99215 ==

== ENCOUNTER 2025-01-15 12:16 | Outpatient (CLI) | payer MEDICARE, MEDICAID, SELFPAY ==
--- NOTE | 2025-01-15 12:21 | CT_ITS ---
WS: [id number] LDCT LUNG CANCER SCREENING TECHNIQUE: Noncontrast CT of the chest with coronal and sagittal reformatted images. CLINICAL INFORMATION: HX OF TOBACCO USE COMPARISON: None. DLP: 80.00 mGy.cm DIvol: Mean CTDIvol: 2.00 (mGy) All CT scans at [facility] use at least one of these dose optimization techniques: automated exposure control; mA and/or kV adjustment per patient size (includes targeted exams where dose is matched to clinical indication); or iterative reconstruction. FINDINGS: Stable 5 mm noncalcified nodule along the fissure RIGHT lung. No new suspicious pulmonary parenchymal abnormalities. A few tiny tree-in-bud opacities in the RIGHT middle lobe. Tiny noncalcified nodule LEFT lower lobe. A few calcified granulomas. Subsegmental atelectasis in the lung bases and lingula. Aortic calcification. Coronary calcification. No mediastinal or hilar lymphadenopathy. No axillary lymphadenopathy. Moderate thoracic kyphosis. Thoracic curve. Advanced disc space narrowing throughout the mid thoracic spine with endplate degenerative changes. Disc osteophyte complexes in the mid and lower thoracic spine. Mild to moderate central canal stenosis in the mid and lower thoracic spine. This could be furth er evaluated with MRI. Advanced spondylitic changes for a patient this age. CT/CT lung screening [id number] IMPRESSION: Recommend MRI thoracic spine due to mild to moderate central canal stenosis with multiple disc osteophyte complexes in the mid and lower thoracic spine LUNG-RADS: 2S-Benign Appearance or Behavior with Significant Findings FOLLOW UP: 12 Month: Continue annual screening with LDCT
== END 2025-01-15 12:17 | disposition home or self-care (01) ==
PROVIDERS: PCP Registered Nurse; Visit Provider Registered Nurse
DX: Z12.2 Encounter for screening for malignant neoplasm of respiratory organs (principal); Z87.891 Personal history of nicotine dependence; R91.1 Solitary pulmonary nodule; J84.10 Pulmonary fibrosis, unspecified; J98.11 Atelectasis; I70.0 Atherosclerosis of aorta; I25.10 Atherosclerotic heart disease of native coronary artery without angina pectoris; M40.294 Other kyphosis, thoracic region; M43.8X4 Other specified deforming dorsopathies, thoracic region; M51.34 Other intervertebral disc degeneration, thoracic region; M25.78 Osteophyte, vertebrae; M48.04 Spinal stenosis, thoracic region; M47.894 Other spondylosis, thoracic region
CPT/HCPCS: 71271

== ENCOUNTER → 2025-05-02 15:12 | Outpatient (BNVA) | payer MEDICARE, SELFPAY | PROVIDERS: PCP Registered Nurse; Visit Provider Internal Medicine Cardiovascular Disease | DX: I45.6 Pre-excitation syndrome (principal); I10 Essential (primary) hypertension; E78.2 Mixed hyperlipidemia; R00.2 Palpitations; Z94.0 Kidney transplant status; Z87.891 Personal history of nicotine dependence | CPT/HCPCS: 99214 ==

== ENCOUNTER → 2025-05-17 13:06 | Outpatient (BNVA) | payer MEDICARE, SELFPAY | PROVIDERS: PCP Registered Nurse; Visit Provider Nurse Practitioner Family | DX: L82.1 Other seborrheic keratosis (principal); D22.5 Melanocytic nevi of trunk; L57.8 Other skin changes due to chronic exposure to nonionizing radiation; L90.5 Scar conditions and fibrosis of skin; Z80.8 Family history of malignant neoplasm of other organs or systems; Z94.0 Kidney transplant status | CPT/HCPCS: 99213 ==